=== PATIENT | female | born 1985 | race Caucasian/White ===

== ENCOUNTER → 2019-02-11 | Outpatient (CLI) | payer OTHER ==
[~2019-02-11] MED LIST: PREN-127 PO
[2019-02-11 09:15] LABS: PLATELET COUNT, AUTOMATED 261 K/uL (150-450)
== END ==
LOC: LAB 08:01
PROVIDERS: ATTEND Obstetrics & Gynecology
DX: O09.521 Supervision of elderly multigravida, first trimester (principal)
CPT/HCPCS: 36415; 81001; 85025; 86592; 86703; 86762; 86850; 86900; 86901; 87088; 87340

== ENCOUNTER → 2019-05-23 | Outpatient (CLI) | payer OTHER ==
--- NOTE | 2019-05-23 10:07 | RADIOLOGY IMAGING REPORT ---
FACILITY: [facility] PATIENT NAME: Jess Merrill : 1985 MR: [id number] V: [id number] EXAM DATE: ORDERING PHYSICIAN: SAMREEN HARRINGTON TECHNOLOGIST: Location: Patient: Jess Merrill : 1985 Visit/Account:[id number] Date of Sevice: 05/23/2019 EXAMINATION: Ultrasound transabdominal OB > 14 weeks with anatomic evaluation HISTORY: Anatomic survey COMPARISON: None. TECHNIQUE: Transabdominal imaging was performed for assessment of the fetus and maternal pelvic structures. T ransvaginal imaging was not performed. FINDINGS: Placenta: Anterior without previa. The distal tip of the placenta is 2.2 cm from the internal cervic al os Uterus: Gravid, otherwise normal Cervix: Long and closed. Maternal Ovaries: Not visualized. Maternal and other adnexa findings: Not visualized Intrauterine gestations: One. presentation: Variable heart rate: Normal and regular at 139 bpm Amniotic fluid index: 20.7 cm Largest amniotic fluid pocket: 5.6 cm Gestational Parameters: BPD: 5.03 cm 21 weeks/ two days, 58% HC: 19.29 cm 21 weeks/ four days, 64% AC: 15.88 cm 21 weeks/ one days, 43% FL: 3.5 to cm 21 weeks/ one days, 45% Average ultrasound age (AUA): 21 weeks/two days, LORA 10/01/2019 Estimated gestational age by LMP: 21 weeks/zero days, LORA 10/03/2019 Estimated weight (EFW): 400 grams +/- 59 grams EFW for LMP: 51% percentile Anatomic Survey: Intracranial structures, 4-chamber heart, stomach, kidneys, urinary bladder, spine, 3-vessel cord and cord insertion are unremarkable. Two upper and two lower extremities visualized. Cardiac ventricula r outflow tracts, palate and lips are unremarkable in appearance. IMPRESSION: Single viable fetus in variable presentation with an estimated gestational age by measur ements of 21 weeks and two days. The estimated gestational age by LMP is 21 weeks and zero days. Estimated weight is 400 g which is equivalent to the 51st percentile Report Dictated By: Sierra Cameron MD at 05/23/2019 9:56 AM Report E-Signed By: Sierra Cameron MD at 05/23/2019 9:59 AM WSN:[id number]
== END ==
LOC: RAD 08:00
PROVIDERS: ATTEND Obstetrics & Gynecology
DX: Z02.9 Encounter for administrative examinations, unspecified (principal)